=== PATIENT | female | born 1975 | race Caucasian/White ===

== ENCOUNTER 2016-11-27 18:02 | Emergency (ER) | payer SELFPAY ==
[2016-11-27 18:10] VITALS: BMI 39.2
--- NOTE | 2016-11-27 18:29 | DR.GENAD ---
HPI - PCP Primary Care Physician: nfd - Complaint/Symptoms Chief Complaint:: pt states" my rt ear is hurting bad since sunday it feels like its going to the other ear can you take a picture of my head to see what is going on" - Source History Provided: Patient - Mode of Arrival Mode of Arrival: Ambulatory - Timing Onset of Chief Complaint: 11/25/16 PMH - PMH Past Medical History: No Past Surgical History: Yes Surgical History: Appendectomy, , Hysterectomy Past Surgical History Comment: sinus - Family History History of Family Medical Conditions: Yes Family Medical History: Cancer, Heart Failure - Social History Type of Tobacco Use: Cigarettes Does any household member use tobacco: Yes Alcohol Use: None Do you use any recreational Drugs:: No Lives With: Family Lives Where: Home - infectious screening In the last 2 months have you had wt loss of >10#?: NO Have you had fever, night sweats or hemotysis?: No Have you traveled outside the country in the last 6 months?: No Isolation: Standard ROS - Review of Systems Eyes: No Symptoms Reported ENTM: Ear Pain (right) Respiratoy: No Symptoms Reported Cardiovascular: No Symptoms Reported Gastrointestinal/Abdominal: No Symptoms Reported Genitourinary: No Symptoms Reported Neurological: No Symptoms Reported Musculoskeletal: No Symptoms Reported Integumentary: No Symptoms Reported Hematologic/Lymphatic: No Symptoms Reported Endocrine: No Symptoms Reported Psychiatric: No Symptoms Reported All Other Systems: Reviewed and Negative PE - Vital Signs Vitals: Temperature 983 F Pulse Rate 76 Respiratory Rate 18 Blood Pressure 118/74 O2 Sat by Pulse Oximetry 98 - General Limitations: No Limitations General Appearance: Alert, In No Apparent Distress - Head Head Exam: Normal Inspection, Atraumatic - Eyes Eye exam: Normal Appearance, PERRL, EOMI - ENT ENT Exam: Other (Right TM dull red andretracted) External Ear Exam: Normal External Inspection TM/Canal Exam: Bilateral Normal Nose Exam: Normal Nose Exam Mouth Exam: Normal Inspection Throat Exam: Normal Inspection - Neck Neck Exam: Normal Inspection - Chest Chest Inspection: Normal Inspection - Respiratory Respiratory Exam: Normal Lung Sounds Bilat Respiratory Exam: Bilateral Clear to Auscultation - Cardiovascular Cardiovascular Exam: Regular Rate, Normal Rhythm - Abdominal Exam Abdominal Exam: Normal Inspection Abdominal Tenderness: negative: RUQ, RLQ, LUQ, LLQ, Epigastrium, Suprapubic, Diffuse, Mild, Moderate, Severe, Other - Extremities Extremities Exam: Normal Inspection - Back Back Exam: Normal Inspection - Neurologic Neurological Exam: Alert, Oriented X3, CN II-XII Intact - Psychiatric Psychiatric Exam: Normal Affect - Skin Skin Exam: Warm, Dry, Intact - Diagnosis Discharge Problem: Right otitis media Qualifiers: Otitis media type: suppurative Chronicity: acute Recurrence: not specified as recurrent Spontaneous tympanic membrane rupture: without spontaneous rupture Qualified Code(s): H66.001 - Acute suppurative otitis media without spontaneous rupture of ear drum, right ear - Discharge Plan Condition: Stable - Follow ups/Referrals Follow ups/Referrals: NFD,None [Primary Care Provider] - 3 days - Instructions
[2016-11-27] MEDS ORDERED: ROCEPHIN VIAL 1 GM IM ONE (18:30)
[2016-11-27] MEDS ORDERED: XYLOCAINE 1 % (PLAIN) ONE (18:31)
[2016-11-27] MEDS ORDERED: ROCEPHIN VIAL 1 GM ONE (18:31)
[2016-11-27 18:56] VITALS: BP 116/72
== END 2016-11-27 18:56 | disposition home or self-care (01) ==
LOC: ER 18:13
DX: H66.001 Acute suppurative otitis media without spontaneous rupture of ear drum, right ear (principal)
CPT/HCPCS: 96372; 99282; J0696; J2001

== ENCOUNTER 2017-05-31 18:00 | Emergency (ER) | payer SELFPAY ==
[2017-05-31 18:06] VITALS: BP 113/77; BMI 37.8
--- NOTE | 2017-05-31 18:21 | DR.EXTPAIN ---
HPI - Time seen Time seen: 18:20 - PCP Primary Care Physician: kyra - HPI Comment HPI Comment: DENIES OTHER INJURIES. - Complaint/Symptoms Chief Complaint Doctor Comments: RIGHT SHOULDER PAIN FOR SEVERAL HOURS DUE TO A FALL. Chief Complaint:: pt stated she fell this morning and landed on her right shoulder. she stated she has been in pain every since. - Nurses notes reviewed Nurses Notes Review: Yes - Source History Provided: Patient - Mode of arrival Mode of Arrival: Ambulatory - Timing Onset of Chief Complaint: 05/31/17 - Context History of: None - Associated signs and symptoms Associated Signs and Symptoms: Pain PMH - PMH Past Medical History: Yes Past Medical History: GERD Past Surgical History: Yes Surgical History: Appendectomy, , Hysterectomy - Family History History of Family Medical Conditions: Yes Family Medical History: Cancer, Heart Failure - Social History Does patient currently use any type of tobacco product: Yes Have you used tobacco products in the last 12 months: Yes Type of Tobacco Use: Cigarettes How many years tobacco product used: 20 Does any household member use tobacco: No Alcohol Use: None Do you use any recreational Drugs:: No Lives With: Alone Lives Where: Home - infectious screening In the last 2 months have you had wt loss of >10#?: NO Have you had fever, night sweats or hemotysis?: No Have you traveled outside the country in the last 6 months?: No Isolation: Standard ROS - Review of Systems Constitutional: No Symptoms Reported Eyes: No Symptoms Reported ENTM: No Symptoms Reported Respiratoy: No Symptoms Reported Cardiovascular: No Symptoms Reported Gastrointestinal/Abdominal: No Symptoms Reported Genitourinary: No Symptoms Reported Neurological: No Symptoms Reported Musculoskeletal: Right, Shoulder Integumentary: No Symptoms Reported Hematologic/Lymphatic: No Symptoms Reported Endocrine: No Symptoms Reported All Other Systems: Reviewed and Negative PE - Vital Signs Vitals: Temperature 98.2 F Pulse Rate 77 Respiratory Rate 16 Blood Pressure [Left Arm] 116/72 Blood Pressure 113/77 O2 Sat by Pulse Oximetry 98 - General Limitations: No Limitations General Appearance: Alert - Head Head Exam: Normal Inspection - Eyes Eye exam: Normal Appearance - ENT ENT Exam: Normal External Ear Exam - Neck Neck Exam: Trachea Midline - Chest Chest Inspection: Symmetric Chest Wall Rise - Respiratory Respiratory Exam: Normal Lung Sounds Bilat Respiratory Exam: Bilateral Clear to Auscultation - Cardiovascular Cardiovascular Exam: Regular Rate, Normal Rhythm, Normal Heart Sounds - Abdominal Exam Abdominal Exam: Normal Inspection - Extremities Extremities Exam: Tenderness (RT SHOULDER TENDER WITH DECREASE ROM.) - Upper Extremities Shoulder Exam: Tenderness (RT.) - Lower Extremities Neurovascular/Tendon Exam: Normal Capillary Refill Gait Exam: Observed and Normal - Back Back Exam: Normal Inspection - Neurological Neurological Exam: Alert, Oriented X3 - Psychiatric Psychiatric Exam: Normal Affect, Normal Mood - Skin Skin Exam: Normal Color MDM - Differential Diagnosis Differential Diagnosis: Contusion, Fracture, Sprain (RIGHT SHOULDER.) Course - Treatment Treatment: SEE ORDERS. - Education/Counseling Education/Counseling: Patient, Education Educated On: Diagnosis, Needs for Follow Up - Diagnosis Discharge Problem: Sprain of right shoulder Qualifiers: Encounter type: initial encounter Shoulder sprain type: unspecified sprain Qualified Code(s): S43.401A - Unspecified sprain of right shoulder joint, initial encounter - Discharge Plan Condition: Stable Prescriptions: Ibuprofen [MOTRIN TAB 800 MG *] 800 mg PO Q8H PRN #30 tab PRN Reason: Pain/Inflammation Tramadol HCl 50 mg PO Q8H #15 tablet - Follow ups/Referrals Follow ups/Referrals: NFD,None [Primary Care Provider] - 06/01/17 Shane Ferguson [STAFF PHYSICIAN] - 06/01/17 - Instructions Instructions: How to Use a Shoulder Immobilizer, Shoulder Sprain
--- NOTE | 2017-05-31 18:40 | RAD ---
Three views of the right shoulder Indication: Right shoulder pain after fall Findings: No acute fracture or dislocation within the right shoulder. AC and glenohumeral joint space s are maintained. No localizing soft tissue swelling. No displaced right-sided rib fracture. Impression: No radiographic abnormality identified within the right shoulder. Reported By:
[2017-05-31] MEDS ORDERED: TORADOL 60 MG VIAL IM ONE (18:43)
[2017-05-31] MEDS ORDERED: TORADOL 60 MG VIAL ONE (18:50)
== END 2017-05-31 19:10 | disposition home or self-care (01) ==
LOC: ER 18:00
DX: S43.401A Unspecified sprain of right shoulder joint, initial encounter (principal); W19.XXXA Unspecified fall, initial encounter; Y92.9 Unspecified place or not applicable
CPT/HCPCS: 73030; 96372; 99282; J1885

== ENCOUNTER 2020-04-02 15:48 | Observation (INO) ==
[2020-04-02 17:12] VITALS: BMI 37.8
[2020-04-02 17:25] LABS: ABG BASE EXCESS 0.3 mmol/L (-2.0-2.0); ABG HCO3 24.6 mmol/L (22-26)
[2020-04-02 17:26] LABS: ABG ALLEN TEST POS
--- NOTE | 2020-04-02 17:28 | RAD ---
HISTORYPT C/O C/C/C, SOB, VOMITING, FEVER, BODY ACHES, AND CHILLS. PT STATES SHE HAS BEEN SICK WITH THESE SYMPTOMS FOR APPROX 3 DAYSSTUDYCHEST, 1 VIEWCOMPARISONNoneFINDINGSThe cardiomediastinal silhouette is unremarkable. The lungs are clear without evidence of airspace disease or effusion. No pneumothorax. The bony thorax appears intact.IMPRESSIONNo acute cardiopulmonary disease.Electronically signed by: MARCIA MORENO (Apr 02, 2020 17:26:43)
[2020-04-02 17:31] LABS: BASOPHILS % (AUTO) 0.4 % (0.2-1.0); EOSINOPHILS # (AUTO) 0.2 x10^3/uL (0.0-0.2); EOSINOPHILS % (AUTO) 1.6 % (0.9-2.9); HEMATOCRIT 42.1 % (36.0-47.0); HEMOGLOBIN 14.2 g/dL (12.0-16.0); LYMPHOCYTES # (AUTO) 0.8 X10^3/uL (1.3-2.9); LYMPHOCYTES % (AUTO) 8.2 % (21.0-51.0); MEAN CORPUSCULAR HGB CONC 33.7 g/dL (33.0-35.0); MEAN CORPUSCULAR VOLUME 86.2 fL (80.0-100.0); MEAN PLATELET VOLUME 9.7 fL (7.4-11.0); MONOCYTES # (AUTO) 0.8 x10^3/uL (0.3-0.8); MONOCYTES % (AUTO) 7.5 % (0.0-13.0); NEUTROPHILS # (AUTO) 8.3 x10^3/uL (2.2-4.8); NEUTROPHILS % (AUTO) 82.3 % (42.0-75.0); PLATELET COUNT 231 X10^3/uL (150.0-450.0); RED BLOOD COUNT 4.89 X10^6/uL (3.5-5.4); RED CELL DISTRIBUTION WIDTH 14.1 % (11.6-16.5); WHITE BLOOD COUNT 10.1 X10^3/uL (3.6-10.0)
[2020-04-02 17:47] LABS: BLOOD UREA NITROGEN 5 mg/dL (7-18); CALCIUM 9.3 mg/dL (8.5-10.1); CARBON DIOXIDE 25.2 mmol/L (21-32); CHLORIDE 104 mmol/L (98-107); CREATININE 0.76 mg/dL (0.55-1.02); SODIUM 140 mmol/L (136-145); TROPONIN I < 0.02 ng/mL (0-1.5); eGFR NON BLACK RACES > 60 (>60)
[2020-04-02 17:51] LABS: ALANINE AMINOTRANSFERASE 40 Units/L (12-78); ALBUMIN 3.8 g/dL (3.4-5.0); ALKALINE PHOSPHATASE 90 Units/L (46-116); ASPARTATE AMINO TRANSFERASE 24 Units/L (15-37); CKMB % 1.3 % (<4); CREATINE KINASE 109 Units/L (26-192); CREATINE KINASE MB 1.4 ng/mL (0-4.0); MAGNESIUM 1.8 mg/dL (1.7-2.9); TOTAL PROTEIN 7.8 g/dL (6.4-8.2)
[2020-04-02] MEDS ORDERED: NS 100 ML IV 100 ML IV ONE (18:01)
[2020-04-02] MEDS ORDERED: PROVENTIL NEB TX 0.083% 2.5MG/ 3ML NEB ONE (18:10)
[2020-04-02] MEDS ORDERED: DECADRON INJ IVP ONE (18:10)
[2020-04-02] MEDS ORDERED: ZITHROMAX INJ 500 MG VIAL 500 MG in NS 250 ML IV 250 ML IV SCH (18:11)
--- NOTE | 2020-04-02 18:12 | DR.SOBA ---
HPI Time Seen Time Seen by Provider: 04/02/20 17:00 Primary Care Physician Primary Care Physician: NFD Complaints Chief Complaint:: PT C/O C/C/C, SOB, VOMITING, FEVER, BODY ACHES, AND CHILLS. PT STATES SHE HAS BEEN SICK WITH THESE SYMPTOMS FOR APPROX 3 DAYS. COVID-19 Coronavirus risk:travel/contact w/high risk person: No Has patient experienced Coronavirus symptoms: Yes Coronavirus symptoms experienced: Fever, Coughing and Shortness of Breath Source History Provided: Patient Mode of Arrival Mode of Arrival: Ambulatory Timing Onset of Chief Complaint: 03/30/20 PMH PMH Past Medical History: No Past Medical History: GERD Past Surgical History: Yes Surgical History: and Hysterectomy Family History History of Family Medical Conditions: Yes Family Medical History: Cancer and Heart Failure Social History Does patient currently use any type of tobacco product: Yes Have you used tobacco products in the last 12 months: Yes Type of Tobacco Use: Cigarettes Does any household member use tobacco: No Alcohol Use: None Do you use any recreational Drugs:: No Lives With: Family Lives Where: Home Travel Risk Coronavirus risk:travel/contact w/high risk person: No Has patient experienced Coronavirus symptoms: Yes Coronavirus symptoms experienced: Fever, Coughing and Shortness of Breath Infectious screening In the last 2 months have you had wt loss of >10#?: NO Have you had fever, night sweats or hemotysis?: No Have you traveled outside the country in the last 6 months?: No Isolation: Droplet ROS Review of Systems Constitutional: See HPI PE Vital Signs Vitals: Temperature 101.0 F Pulse Rate 107 Respiratory Rate 25 Blood Pressure [Right Arm] 152/97 Blood Pressure 169/70 O2 Sat by Pulse Oximetry 98 General Limitations: No Limitations General Appearance: Alert and In No Apparent Distress Head Head Exam: Normal Inspection, Atraumatic and Normocephalic Eyes Eye exam: Normal Appearance, PERRL and EOMI ENT ENT Exam: Normal Exam Neck Neck Exam: Normal Inspection and Trachea Midline Chest Chest Inspection: Normal Inspection and Symmetric Chest Wall Rise Respiratory Respiratory Exam: Bilateral: Wheezing, Bilateral: Rales and Bilateral: Rhonchi Cardiovascular Cardiovascular Exam: Regular Rate, Normal Rhythm and Normal Heart Sounds Abdominal Exam Abdominal Exam: Normal Inspection, Normal Bowel Sounds and Soft Extremities Extremities Exam: Normal Inspection and Full ROM Neurologic Neurological Exam: Alert and Oriented X3 Psychiatric Psychiatric Exam: Normal Affect Skin Skin Exam: Warm, Dry and Intact COURSE Reevaluation 1st: Unchanged Consultation Consultation Comments: Spoke with Dr. Ferguson who accepts patient for admission. [facility] Labs Reviewed Result Diagrams: 04/02/20 17:05 04/02/20 17:05 Laboratory: WBC 10.1 X10^3/uL (3.6-10.0) H 04/02/20 17:05 RBC 4.89 X10^6/uL (3.5-5.4) 04/02/20 17:05 Hgb 14.2 g/dL (12.0-16.0) 04/02/20 17:05 Hct 42.1 % (36.0-47.0) 04/02/20 17:05 MCV 86.2 fL (80.0-100.0) 04/02/20 17:05 MCH 29.0 pg (27.0-34.0) 04/02/20 17:05 MCHC 33.7 g/dL (33.0-35.0) 04/02/20 17:05 RDW 14.1 % (11.6-16.5) 04/02/20 17:05 Plt Count 231 X10^3/uL (150.0-450.0) 04/02/20 17:05 MPV 9.7 fL (7.4-11.0) 04/02/20 17:05 Neut % (Auto) 82.3 % (42.0-75.0) H 04/02/20 17:05 Lymph % (Auto) 8.2 % (21.0-51.0) L 04/02/20 17:05 [place] % (Auto) 7.5 % (0.0-13.0) 04/02/20 17:05 Eos % (Auto) 1.6 % (0.9-2.9) 04/02/20 17:05 Baso % (Auto) 0.4 % (0.2-1.0) 04/02/20 17:05 Neut # (Auto) 8.3 x10^3/uL (2.2-4.8) H 04/02/20 17:05 Lymph # (Auto) 0.8 X10^3/uL (1.3-2.9) L 04/02/20 17:05 [place] # (Auto) 0.8 x10^3/uL (0.3-0.8) 04/02/20 17:05 Eos # (Auto) 0.2 x10^3/uL (0.0-0.2) 04/02/20 17:05 Baso # (Auto) 0.0 X10^3/uL (0.0-0.1) 04/02/20 17:05 Absolute Nucleated RBC 0.1 /100WBC 04/02/20 17:05 PT 13.7 SECONDS (11.8-14.3) 04/02/20 17:05 INR Target Range - 04/02/20 17:05 INR 1.08 (0.8-1.3) 04/02/20 17:05 Sample Site Rra 04/02/20 17:22 ABG pH 7.420 (7.35-7.45) 04/02/20 17:22 ABG pCO2 38.0 mmHg (35.0-45.0) 04/02/20 17:22 ABG pO2 50.0 mmHg (80.0-100.0) L 04/02/20 17:22 ABG HCO3 24.6 mmol/L (22-26) 04/02/20 17:22 ABG O2 Saturation 86.0 % (90-100) L 04/02/20 17:22 ABG Base Excess 0.3 mmol/L (-2.0-2.0) 04/02/20 17:22 Chandan Test Pos 04/02/20 17:22 A-a Gradient 52.0 mmHg 04/02/20 17:22 FiO2 21.0 04/02/20 17:22 Blood Gas Comments Pt radha well eb 04/02/20 17:22 Sodium 140 mmol/L (136-145) 04/02/20 17:05 Corrected Sodium TNP 04/02/20 17:05 Potassium 3.7 mmol/L (3.5-5.1) 04/02/20 17:05 Chloride 104 mmol/L (98-107) 04/02/20 17:05 Carbon Dioxide 25.2 mmol/L (21-32) 04/02/20 17:05 BUN 5 mg/dL (7-18) L 04/02/20 17:05 Creatinine 0.76 mg/dL (0.55-1.02) 04/02/20 17:05 Est GFR (MDRD) Af Amer > 60 (>60) 04/02/20 17:05 Est GFR (MDRD) Non-Af > 60 (>60) 04/02/20 17:05 Glucose 102 mg/dL (65-99) H 04/02/20 17:05 Calcium 9.3 mg/dL (8.5-10.1) 04/02/20 17:05 Corrected Calcium TNP 04/02/20 17:05 Magnesium 1.8 mg/dL (1.7-2.9) 04/02/20 17:05 Total Bilirubin 0.60 mg/dL (0.2-1.0) 04/02/20 17:05 AST 24 Units/L (15-37) 04/02/20 17:05 ALT 40 Units/L (12-78) 04/02/20 17:05 Alkaline Phosphatase 90 Units/L (46-116) 04/02/20 17:05 Creatine Kinase 109 Units/L (26-192) 04/02/20 17:05 CK-MB (CK-2) 1.4 ng/mL (0-4.0) 04/02/20 17:05 CK/CKMB % Calc 1.3 % (<4) 04/02/20 17:05 Troponin I < 0.02 ng/mL (0-1.5) 04/02/20 17:05 B-Natriuretic Peptide 32.6 pg/mL (0-79) 04/02/20 17:05 Total Protein 7.8 g/dL (6.4-8.2) 04/02/20 17:05 Albumin 3.8 g/dL (3.4-5.0) 04/02/20 17:05 Globulin 4.0 g/dL (2.5-4.5) 04/02/20 17:05 Albumin/Globulin Ratio 1.0 Ratio (1.1-2.1) L 04/02/20 17:05 SARS CoV-2 RNA Rapid KATIE Negative (NEGATIVE) 04/02/20 19:07 Opioid Opioid Risk Tool Age (Serg box if 16-45): Yes History of Preadolescent Sexual Abuse: No Total: 1 Total Score Risk Category: Low Risk Copyright: Jamel MENEZES predicting aberrant behaviors Diagnosis Discharge Problem: Hypoxia, Acute dyspnea
[2020-04-02] MEDS ORDERED: PROVENTIL NEB TX 0.083% 2.5MG/ 3ML ONE (18:19)
[2020-04-02] MEDS ORDERED: NS 250 ML IV 250 ML IV ONE (18:23)
[2020-04-02] MEDS ORDERED: ZITHROMAX INJ 500 MG VIAL IV ONE (18:23)
[2020-04-02] MEDS ORDERED: DECADRON INJ ONE ×2 (18:23→18:25)
[2020-04-02] MEDS ORDERED: NS 1000 ML 1,000 ML ONE (18:28)
[2020-04-02] MEDS: NS 1000 ML 1,000 ML IV SCH (18:36)
--- NOTE | 2020-04-02 18:39 | CT ---
CTA CHESTCLINICAL INDICATION: Shortness of breathPROCEDURE: Non gated axial images of the chest were obtained with intravenous contrast according to pulmonary embolism protocol. MIPS were reconstructed Dose reduction techniques including Automated Exposure Control (AEC) and adjustment of mA and kV were utlized.COMPARISON:NoneFINDINGS:No evidence of a pulmonary embolism to the level of the segmental pulmonary arteries.The heart is normal in size . No pericardial effusion . No suspicious mediastinal or axillary lymph nodes . No focal consolidations, pleural effusions or pneumothorax .Airways are patent . No suspicious pulmonary nodules or masses .Limited images of the upper abdomen are unremarkable.No aggressive osseous lesions.IMPRESSION:1. No evidence of pulmonary embolism.Electronically signed by: CARLA VAZQUEZ (Apr 02, 2020 18:37:18)
[2020-04-02] MEDS ORDERED: ZOSYN VIAL 4.5 GRAMS 4.5 G in NS 100 ML IV + SPIKE MINIBAG* 100 ML IV SCH (19:50)
[2020-04-02] MEDS ORDERED: LEVAQUIN PREMIX IV 750 MG 750 MG/150 ML BAG IV ONE ×2 (19:50→20:58)
[2020-04-02 20:46] LABS: RSV AG DETECTION NEGATIVE (NEGATIVE)
[2020-04-02] MEDS ORDERED: ZOSYN VIAL 4.5 GRAMS IV ONE (20:58)
[2020-04-02] MEDS ORDERED: NS 100 ML IV + SPIKE MINIBAG* 100 ML IV ONE (20:59)
[2020-04-03] MEDS ORDERED: ZOSYN VIAL 4.5 GRAMS IV ONE ×3 (05:35→20:16)
[2020-04-03] MEDS ORDERED: NS 100 ML IV + SPIKE MINIBAG* 100 ML IV ONE ×3 (05:36→20:16)
[2020-04-03] MEDS: ZOSYN VIAL 4.5 GRAMS 4.5 G in NS 100 ML IV + SPIKE MINIBAG* 100 ML IV SCH ×3 (05:49→21:06)
[2020-04-03] MEDS: NS 1000 ML 1,000 ML IV SCH ×2 (05:49→15:00)
[2020-04-03 05:55] LABS: ABG ALLEN TEST POS; ABG BASE EXCESS -0.4 mmol/L (-2.0-2.0); ABG HCO3 24.8 mmol/L (22-26)
--- NOTE | 2020-04-03 06:42 | RAD ---
CHEST, 1 VIEWHISTORY: SOBStudy: Single view of the chest.Comparison:NoneFindings:The cardiomediastinal silhouette is normal.No focal consolidations, pleural effusions or pneumothorax. Osseous structures demonstrate no acute abnormality.IMPRESSION:1. No acute cardiopulmonary process.Electronically signed by: CARLA VAZQUEZ (Apr 03, 2020 06:41:11)
[2020-04-03 06:54] LABS: BASOPHILS % (AUTO) 0.1 % (0.2-1.0); HEMATOCRIT 40.2 % (36.0-47.0); HEMOGLOBIN 13.6 g/dL (12.0-16.0); LYMPHOCYTES # (AUTO) 0.5 X10^3/uL (1.3-2.9); LYMPHOCYTES % (AUTO) 6.6 % (21.0-51.0); MEAN CORPUSCULAR HEMOGLOBIN 29.1 pg (27.0-34.0); MEAN CORPUSCULAR HGB CONC 33.8 g/dL (33.0-35.0); MEAN PLATELET VOLUME 9.9 fL (7.4-11.0); MONOCYTES # (AUTO) 0.1 x10^3/uL (0.3-0.8); MONOCYTES % (AUTO) 1.3 % (0.0-13.0); NEUTROPHILS # (AUTO) 7.1 x10^3/uL (2.2-4.8); PLATELET COUNT 235 X10^3/uL (150.0-450.0); RED BLOOD COUNT 4.68 X10^6/uL (3.5-5.4); RED CELL DISTRIBUTION WIDTH 14.3 % (11.6-16.5); WHITE BLOOD COUNT 7.7 X10^3/uL (3.6-10.0)
[2020-04-03 07:08] LABS: ALANINE AMINOTRANSFERASE 37 Units/L (12-78); ALBUMIN 3.6 g/dL (3.4-5.0); ALKALINE PHOSPHATASE 85 Units/L (46-116); ASPARTATE AMINO TRANSFERASE 20 Units/L (15-37); BLOOD UREA NITROGEN 7 mg/dL (7-18); CALCIUM 9.2 mg/dL (8.5-10.1); CARBON DIOXIDE 23.1 mmol/L (21-32); CHLORIDE 104 mmol/L (98-107); SODIUM 140 mmol/L (136-145); TOTAL PROTEIN 7.7 g/dL (6.4-8.2); eGFR NON BLACK RACES > 60 (>60)
[2020-04-03 08:28] LABS: BAND NEUTROPHILS % 3 % (0-10); PLATELET MORPHOLOGY COMMENT NORMAL (NORMAL)
[2020-04-03] MEDS ORDERED: FIORICET TAB PO PRN (09:31)
[2020-04-03] MEDS ORDERED: DUONEB 0.5 MG/3 MG (3 mL) NEB ONE ×2 (09:55→20:01)
[2020-04-03] MEDS: MUCOMYST 20% 200 MG/ML NEB SCH ×4 (10:00→20:04)
[2020-04-03] MEDS: DUONEB 0.5 MG/3 MG (3 mL) NEB SCH ×4 (10:00→20:04)
[2020-04-03] MEDS ORDERED: LEVAQUIN PREMIX IV 750 MG 750 MG/150 ML BAG IV ONE (10:45)
[2020-04-03] MEDS ORDERED: SOLU-Medrol 125 MG VIAL ONE ×3 (10:45→20:15)
[2020-04-03] MEDS ORDERED: FIORICET TAB PO ONE (10:45)
[2020-04-03] MEDS: LEVAQUIN PREMIX IV 750 MG 750 MG/150 ML BAG IV SCH (10:46)
[2020-04-03] MEDS: SOLU-Medrol 125 MG VIAL IVP SCH ×3 (10:46→21:00)
--- NOTE | 2020-04-03 11:31 | DR.H&P ---
H&P - History & Physical for Day of: H&P Date: 04/02/20 - Chief Complaint Chief Complaint: COUGH, COLD, CONGESTION, SHORTNESS OF BREATH, FEVER, BODY ACHES, CHILLS, AND NAUSEA FOR THE PAST 3 DAYS - History of Present Illness History of Present Illness: IS A 44 YEAR OLD WHITE FEMALE WHO PRESENTED TO THE ER WITH COMPLAINTS OF COUGH, COLD, CONGESTION, SHORTNESS OF BREATH, FEVER, BODY ACHES, CHILLS, AND NAUSEA FOR THE PAST 3 DAYS. SHE REPORTS THAT COUGH IS PRODUCTIVE. SHE DENIES KNOW CONTACT WITH ANYONE WHO HAS BEEN COVID POSITVE. ON EXAMINATION, SHE IS NOTED TO HAVE SCATTERED RHONCHI TO BILATERAL LUNGS. ON ARRIVAL, VITALS WERE 101.0-120-28-90%RA-169/70. LABS WERE OBTAINED. ABNORMAL LAB VALUES INCLUDED THE FOLLOWING: WBC 10.1, BUN 5, GLUCOSE 102, CRP 90.60. RSV, COVID-19, STREP, AND INFLUENZA WERE NEGATIVE. AN ABG WAS OBTAINED AND REVEALED: PH 7.420, PC02 38, P02 50, HC03 24.6, 02 SAT 86, A-A GRADIENT 52, FI02 21.0. BLOOD CULTURES WERE SET UP. A CHEST XRAY WAS OBTAINED AND REVEALED: The cardiomediastinal silhouette is unremarkable. The lungs are clear without evidence of airspace disease or effusion. No pneumothorax. The bony thorax appears intact. A CHEST CTA WAS THEN OBTAINED AND REVEALED: No evidence of a pulmonary embolism to the level of the segmental pulmonary arteries. The heart is normal in size . No pericardial effusion . No suspicious mediastinal or axillary lymph nodes . No focal consolidations, pleural effusions or pneumothorax .Airways are patent . No suspicious pulmonary nodules or masses. Limited images of the upper abdomen are unremarkable. No aggressive osseous lesions. EKG REVEALED: SINUS TACHYCARDIA WITH HR 112. HER OXYGEN SATURATIONS DID DROP TO 88% ON ROOM AIR WHILE IN THE ER. SHE WAS PLACED ON OXYGEN VIA NASAL CANNULA AT 3 LITERS/MINUTE. HER SATURATIONS RECOVERED TO THE UPPER 90s. IN THE ER, SHE WAS GIVEN DECADRON 10MG IV X 1, A PROVENTIL NEB TX, LEVAQUIN 750MG IV X 1, ZOSYN 4.5G IV X 1. SHE WAS ADMITTED TO THE HOSPITAL FOR FURTHER EVALUATION AND TREATMENT OF BRONCHOPNEUMONIA, HYPOXIA, FEVER, AND DYSPNEA. SHE WAS STARTED ON NORMAL SALINE AT 125 ML/HR, LEVAQUIN 750MG IV DAILY, ZOSYN 4.5G IV TID, DUONEBS QID, MUCOMYST IN NEBS QID, SOLU-MEDROL 125MG IV Q6H, AND FIORICET 2 TABS PO Q8H PRN. WE WILL OBTAIN A SPUTUM CULTURE. OTHERWISE, WE WILL FOLLOW UP WITH AM LABS AND CHEST XRAY AND CONTINUE TO MONITOR. TIME SPENT ON CLINICAL ASSESSMENT, REVIEWING LABS AND IMAGING, DECISION MAKING, AND DOCUMENTATION GREATER THAN 75 MINUTES. - Past Medical History Past Medical History: GERD - Past Surgical History Surgical History: , Hysterectomy - Family History Family Medical History: Cancer, Heart Failure - Social History Does patient currently use any type of tobacco product: Yes Have you used tobacco products in the last 12 months: Yes Type of Tobacco Use: Cigarettes Does any household member use tobacco: No Alcohol Use: None - Medications Home Medications: hydromorphone [From Dilaudid] Allergy (Verified 03/21/18 11:04) - Review of Systems Constitutional: See HPI, Fever, Chills, Weakness, Malaise Eyes: No Symptoms Reported ENT: No Symptoms Reported Respiratory: See HPI, Cough, Shortness of Breath, SOB with Excertion, Sputum Cardiovascular: No Symptoms Reported Gastrointestinal: Nausea Genitourinary: No Symptoms Reported Musculoskeletal: No Symptoms Reported Skin: No Symptoms Reported Neurological: Weakness - Physical Exam Vital Signs: Temperature 98.1 F Pulse Rate [Right Brachial] 58 Pulse Rate [Bilateral] 74 Pulse Rate 88 Respiratory Rate 20 Blood Pressure [Right Arm] 129/71 Blood Pressure 169/70 O2 Sat by Pulse Oximetry 96 Oriented: Normal Eyes: Normal Ear: Normal Nose: Normal Throat: Normal Respiratory: Diminished Throughout, Rhonchi Throughout Cardiovascular: Tachycardia : Normal Auscultation: Bowel Sounds: Normal Palpation: Normal Tenderness: Normal Skin: Normal Musculoskeletal: Normal Psychiatric: Normal Mood Description: Calm Affect: Normal Speech Pattern: Clear - Assessment/Plan (1) Bronchopneumonia Status: Acute Plan: ADMIT, SUPPLEMENTAL OXYGEN, NORMAL SALINE AT 125 ML/HR, LEVAQUIN 750MG IV DAILY, ZOSYN 4.5G IV TID, DUONEBS QID, MUCOMYST IN NEBS QID, SOLU-MEDROL 125MG IV Q6H, AND FIORICET 2 TABS PO Q8H PRN. MONITOR LABS AND CHEST XRAY (2) Hypoxia Status: Acute (3) Acute dyspnea Status: Acute (4) Fever Qualifiers: Fever type: unspecified Qualified Code(s): R50.9 - Fever, unspecified Status: Acute - Allergies Allergies/Adverse Reactions: Allergies Allergy/AdvReac Type Severity Reaction Status Date / Time hydromorphone [From Dilaudid] Allergy Verified 03/21/18 11:04
[2020-04-03] MEDS ORDERED: NS 1000 ML 1,000 ML ONE ×2 (12:13→23:39)
[2020-04-03] MEDS ORDERED: MAALOX or MYLANTA ONE (17:13)
[2020-04-03] MEDS: MAALOX or MYLANTA PO PRN (17:22)
[2020-04-03] MEDS ORDERED: PEPCID 20 MG IV PREMIX* 20 MG/50 ML BAG IV ONE (19:16)
[2020-04-03] MEDS ORDERED: MUCOMYST 20% 200 MG/ML ONE (20:01)
[2020-04-03] MEDS: PEPCID 20 MG IV PREMIX* 20 MG/50 ML BAG IV SCH (20:12)
[2020-04-04] MEDS: NS 1000 ML 1,000 ML IV SCH ×4 (00:45→23:49)
[2020-04-04] MEDS: SOLU-Medrol 125 MG VIAL IVP SCH ×4 (05:00→22:00)
[2020-04-04] MEDS ORDERED: SOLU-Medrol 125 MG VIAL ONE ×2 (05:15→08:03)
[2020-04-04] MEDS ORDERED: ZOSYN VIAL 4.5 GRAMS IV ONE (05:15)
[2020-04-04] MEDS ORDERED: NS 100 ML IV + SPIKE MINIBAG* 100 ML IV ONE (05:15)
[2020-04-04] MEDS: ZOSYN VIAL 4.5 GRAMS 4.5 G in NS 100 ML IV + SPIKE MINIBAG* 100 ML IV SCH ×3 (05:27→23:49)
[2020-04-04 06:49] LABS: BASOPHILS % (AUTO) 0.1 % (0.2-1.0); HEMATOCRIT 38.4 % (36.0-47.0); HEMOGLOBIN 12.3 g/dL (12.0-16.0); LYMPHOCYTES # (AUTO) 0.9 X10^3/uL (1.3-2.9); LYMPHOCYTES % (AUTO) 7.2 % (21.0-51.0); MEAN CORPUSCULAR HEMOGLOBIN 28.2 pg (27.0-34.0); MEAN CORPUSCULAR HGB CONC 32.2 g/dL (33.0-35.0); MEAN CORPUSCULAR VOLUME 87.6 fL (80.0-100.0); MEAN PLATELET VOLUME 10.5 fL (7.4-11.0); MONOCYTES # (AUTO) 0.5 x10^3/uL (0.3-0.8); MONOCYTES % (AUTO) 4.1 % (0.0-13.0); NEUTROPHILS # (AUTO) 10.8 x10^3/uL (2.2-4.8); NEUTROPHILS % (AUTO) 88.6 % (42.0-75.0); PLATELET COUNT 241 X10^3/uL (150.0-450.0); RED BLOOD COUNT 4.38 X10^6/uL (3.5-5.4); RED CELL DISTRIBUTION WIDTH 14.2 % (11.6-16.5); WHITE BLOOD COUNT 12.2 X10^3/uL (3.6-10.0)
--- NOTE | 2020-04-04 06:50 | RAD ---
HISTORYSOBSTUDYAP chestCOMPARISONFebruary 2020FINDINGSContinued normal heart size and contour with clear lungs and pleural spaces.IMPRESSIONNo interval change or acute chest abnormality demonstrated.Electronically signed by: ANGIE REYNAGA (Apr 04, 2020 06:48:15)
[2020-04-04 07:07] LABS: ALANINE AMINOTRANSFERASE 38 Units/L (12-78); ALKALINE PHOSPHATASE 70 Units/L (46-116); ASPARTATE AMINO TRANSFERASE 20 Units/L (15-37); BLOOD UREA NITROGEN 10 mg/dL (7-18); CALCIUM 8.9 mg/dL (8.5-10.1); CARBON DIOXIDE 25.5 mmol/L (21-32); CHLORIDE 108 mmol/L (98-107); COR CA(FOR HYPOALB) 9.7 mg/dL (8.5-10.1); COR NA(FOR HYPERGLY) 144 mmol/L (136-145); CREATININE 0.68 mg/dL (0.55-1.02); SODIUM 143 mmol/L (136-145); TOTAL PROTEIN 6.6 g/dL (6.4-8.2); eGFR NON BLACK RACES > 60 (>60)
[2020-04-04] MEDS: DUONEB 0.5 MG/3 MG (3 mL) NEB SCH ×4 (08:00→20:58)
[2020-04-04] MEDS: MUCOMYST 20% 200 MG/ML NEB SCH ×4 (08:00→20:58)
[2020-04-04] MEDS ORDERED: PEPCID 20 MG IV PREMIX* 20 MG/50 ML BAG IV ONE (08:03)
[2020-04-04] MEDS ORDERED: LEVAQUIN PREMIX IV 750 MG 750 MG/150 ML BAG IV ONE (08:04)
[2020-04-04] MEDS: LEVAQUIN PREMIX IV 750 MG 750 MG/150 ML BAG IV SCH (08:10)
[2020-04-04] MEDS: PEPCID 20 MG IV PREMIX* 20 MG/50 ML BAG IV SCH ×2 (08:10→21:40)
[2020-04-04] MEDS ORDERED: POTASSIUM CHL 60 MEQ/NS 0.45% 500 ML IV PRN (14:59)
[2020-04-04] MEDS ORDERED: POTASSIUM CHLORIDE LIQ 20 MEQ UDC PO PRN (14:59)
[2020-04-04] MEDS ORDERED: K-DUR TAB 20 MEQ PO PRN (14:59)
[2020-04-04] MEDS ORDERED: MICRO K EXTEN CAP 10 MEQ PO PRN (14:59)
[2020-04-04] MEDS ORDERED: POTASSIUM CHL 40 MEQ/NS 0.45% 500 ML IV PRN (14:59)
[2020-04-04] MEDS ORDERED: K-RIDER 10 MEQ/NS 100 ML 10 MEQ/100 ML BAG IV PRN (14:59)
[2020-04-04] MEDS ORDERED: KLOR-CON PO PRN (14:59)
[2020-04-04] MEDS ORDERED: NORCO 5/325 MG TAB PO PRN (15:02)
[2020-04-04] MEDS: MAGNESIUM SULFATE 1 GRAM/100 mL PREMIX 1 GM/100 ML BAG IV PRN ×2 (15:12→22:40)
[2020-04-04] MEDS: MAALOX or MYLANTA PO PRN (15:13)
[2020-04-04] MEDS ORDERED: NS 250 ML IV 250 ML IV ONE (15:22)
[2020-04-04 18:05] LABS: BILIRUBIN,URINE NEGATIVE (NEGATIVE); BLOOD/HEMOGLOBIN,URINE NEGATIVE (NEGATIVE); GLUCOSE, URINE NEGATIVE (NEGATIVE); KETONES,URINE NEGATIVE (NEGATIVE); LEUKOCYTE ESTERASE ,URINE NEGATIVE (NEGATIVE); NITRITES,URINE NEGATIVE (NEGATIVE); PH,URINE 6.5 (5.0 - 8.0); PROTEIN,URINE NEGATIVE (NEGATIVE); UROBILINOGEN,URINE NORMAL (NORMAL)
[2020-04-04 18:09] LABS: APPEARANCE,URINE CLEAR (CLEAR); COLOR,URINE YELLOW (YELLOW)
[2020-04-05] MEDS: NS 1000 ML 1,000 ML IV SCH ×3 (01:27→10:08)
[2020-04-05] MEDS: SOLU-Medrol 125 MG VIAL IVP SCH ×2 (03:13→11:00)
[2020-04-05] MEDS: ZOSYN VIAL 4.5 GRAMS 4.5 G in NS 100 ML IV + SPIKE MINIBAG* 100 ML IV SCH (05:46)
--- NOTE | 2020-04-05 06:22 | RAD ---
HISTORYSOBSTUDYCHEST, 1 [id number]/2021FINDINGSThe trachea is midline. The cardiac silhouette is unremarkable . The lungs are clear without focal infiltrate or effusion. The bony thorax is unremarkable.IMPRESSIONNo acute cardiopulmonary disease.Electronically signed by: Oscar Arce (Apr 05, 2020 06:19:22)
[2020-04-05 06:51] LABS: BASOPHILS % (AUTO) 0.1 % (0.2-1.0); HEMATOCRIT 35.7 % (36.0-47.0); HEMOGLOBIN 11.8 g/dL (12.0-16.0); LYMPHOCYTES # (AUTO) 1.2 X10^3/uL (1.3-2.9); LYMPHOCYTES % (AUTO) 8.3 % (21.0-51.0); MEAN CORPUSCULAR HEMOGLOBIN 28.8 pg (27.0-34.0); MEAN CORPUSCULAR VOLUME 87.3 fL (80.0-100.0); MEAN PLATELET VOLUME 10.3 fL (7.4-11.0); MONOCYTES # (AUTO) 0.5 x10^3/uL (0.3-0.8); MONOCYTES % (AUTO) 3.7 % (0.0-13.0); NEUTROPHILS # (AUTO) 12.8 x10^3/uL (2.2-4.8); NEUTROPHILS % (AUTO) 87.9 % (42.0-75.0); PLATELET COUNT 247 X10^3/uL (150.0-450.0); RED BLOOD COUNT 4.09 X10^6/uL (3.5-5.4); RED CELL DISTRIBUTION WIDTH 14.5 % (11.6-16.5); WHITE BLOOD COUNT 14.5 X10^3/uL (3.6-10.0)
[2020-04-05 07:28] LABS: ALANINE AMINOTRANSFERASE 35 Units/L (12-78); ALBUMIN 2.9 g/dL (3.4-5.0); ALKALINE PHOSPHATASE 65 Units/L (46-116); ASPARTATE AMINO TRANSFERASE 18 Units/L (15-37); BLOOD UREA NITROGEN 10 mg/dL (7-18); CALCIUM 8.7 mg/dL (8.5-10.1); CHLORIDE 107 mmol/L (98-107); COR CA(FOR HYPOALB) 9.6 mg/dL (8.5-10.1); COR NA(FOR HYPERGLY) 143 mmol/L (136-145); CREATININE 0.71 mg/dL (0.55-1.02); SODIUM 142 mmol/L (136-145); TOTAL PROTEIN 6.4 g/dL (6.4-8.2); eGFR NON BLACK RACES > 60 (>60)
[2020-04-05] MEDS: PEPCID 20 MG IV PREMIX* 20 MG/50 ML BAG IV SCH (08:26)
[2020-04-05] MEDS: MUCOMYST 20% 200 MG/ML NEB SCH (09:22)
[2020-04-05] MEDS: DUONEB 0.5 MG/3 MG (3 mL) NEB SCH (09:22)
[2020-04-05] MEDS: LEVAQUIN PREMIX IV 750 MG 750 MG/150 ML BAG IV SCH (10:00)
--- NOTE | 2020-04-05 10:55 | PCM.PROG ---
Progress Note - Progress Note for Day of Date of Exam: 04/04/20 - Subjective Subjective: WAS ADMITTED FOR BRONCHOPNEUMONIA, COPD EXACERBATION, HYPOXIA, AND F/EVER. TODAY, SHE IS ALERT AND ORIENTED, LYING IN BED ON MORNING ROUNDS. SHE CONTINUES WITH COMPLAINTS OF A PRODUCTIVE COUGH AND SHORTNESS OF BREATH. SHE DOES ADMIT TO SLIGHT IMPROVEMENT SINCE ADMISSION. SHE IS CURRENTLY UTILIZING OXYGEN VIA NASAL CANNULA AT 3 LITERS/MIN. HER OXYGEN SATURATIONS HAVE BEEN 94-98% THIS MORNING AND THROUGHOUT THE NIGHT. SHE HAS BEEN AFEBRILE SINCE ADMISSION. ON EXAMINATION, HEART IS REGULAR IN RATE AND RHYTHM. BILATERAL LUNGS ARE NOTED WITH SCATTERED RHONCHI THROUGHOUT. ABDOMEN IS ROUND, SOFT, AND NON- TENDER WITH NORMAL BOWEL SOUNDS NOTED IN ALL QUADRANTS. HER VITALS THIS MORNING ARE: 98.7-79-24-96%-106/78. LABS WERE OBTAINED. ABNORMAL LAB VALUES INCLUDE THE FOLLOWING: WBC 12.2, CHLORIDE 108, GLUCOSE 122, CRP 37.60, ALBUMIN 3.0. BLOOD, URINE, AND THROAT CULTURES ARE PENDING. CHEST XRAY IS NEGATIVE FOR ACUTE ABNORMALITY. SHE IS CURRENTLY RECEIVING NORMAL SALINE AT 125 ML/HR, LEVAQUIN 750MG IV DAILY, ZOSYN 4.5G IV TID, DUONEBS QID, MUCOMYST IN NEBS QID, SOLU- MEDROL 125MG IV Q6H, AND FIORICET 2 TABS PO Q8H PRN. WE WILL CONTINUE WITH CURRENT PLAN OF CARE TODAY. OTHERWISE, WE PLAN TO FOLLOW UP WITH AM LABS AND CONTINUE TO MONITOR. - Past Medical Family Social History Past Med/Fam/Surg Hx: No changes since H&P Allergies: Allergies hydromorphone [From Dilaudid] Allergy (Verified 03/21/18 11:04) - Review of Systems ROS: No change since H&P - Vital Signs and I&O's Vital Signs: Temperature 98.4 F Pulse Rate [Right Brachial] 66 Pulse Rate [Bilateral] 74 Pulse Rate 72 Respiratory Rate 22 Blood Pressure [Right Arm] 120/66 Blood Pressure 169/70 O2 Sat by Pulse Oximetry 96 Intake and Output: Intake & Output 04/02/20 04/03/20 04/04/20 04/05/20 11:59 11:59 11:59 11:59 Intake Total 1406 / 1406 3365 / 3365 3449 / 3449 Output Total 0 / 0 Balance 1406 / 1406 3365 / 3365 9275 / 3449 - Physical Exam Oriented: Normal Eyes: Normal Ear: Normal Nose: Normal Throat: Normal Respiratory: Generalized, Diminished Cardiovascular: Tachycardia : Normal Auscultation: Bowel Sounds: Normal Palpation: Normal Tenderness: Normal Skin: Normal Musculoskeletal: Normal Psychiatric: Normal Mood Description: Calm Affect: Normal Speech Pattern: Clear, Appropriate - Laboratory and Diagnostics Result Diagrams: 04/05/20 06:00 04/05/20 06:00 Labs: 04/04/20 17:50 Urine,Clean Catch Urine Culture - Preliminary 04/02/20 17:05 Blood Blood Culture - Preliminary 04/02/20 17:10 Blood Blood Culture - Preliminary Laboratory WBC 14.5 X10^3/uL (3.6-10.0) H 04/05/20 06:00 RBC 4.09 X10^6/uL (3.5-5.4) 04/05/20 06:00 Hgb 11.8 g/dL (12.0-16.0) L 04/05/20 06:00 Hct 35.7 % (36.0-47.0) L 04/05/20 06:00 MCV 87.3 fL (80.0-100.0) 04/05/20 06:00 MCH 28.8 pg (27.0-34.0) 04/05/20 06:00 MCHC 33.0 g/dL (33.0-35.0) 04/05/20 06:00 RDW 14.5 % (11.6-16.5) 04/05/20 06:00 Plt Count 247 X10^3/uL (150.0-450.0) 04/05/20 06:00 Plt Count Comment Adequate (ADEQUATE) 04/03/20 06:26 MPV 10.3 fL (7.4-11.0) 04/05/20 06:00 Neut % (Auto) 87.9 % (42.0-75.0) H 04/05/20 06:00 Lymph % (Auto) 8.3 % (21.0-51.0) L 04/05/20 06:00 [place] % (Auto) 3.7 % (0.0-13.0) 04/05/20 06:00 Eos % (Auto) 0.0 % (0.9-2.9) L 04/05/20 06:00 Baso % (Auto) 0.1 % (0.2-1.0) L 04/05/20 06:00 Neut # (Auto) 12.8 x10^3/uL (2.2-4.8) H 04/05/20 06:00 Lymph # (Auto) 1.2 X10^3/uL (1.3-2.9) L 04/05/20 06:00 [place] # (Auto) 0.5 x10^3/uL (0.3-0.8) 04/05/20 06:00 Eos # (Auto) 0.0 x10^3/uL (0.0-0.2) 04/05/20 06:00 Baso # (Auto) 0.0 X10^3/uL (0.0-0.1) 04/05/20 06:00 Absolute Nucleated RBC 0.1 /100WBC 04/05/20 06:00 Total Counted 100 04/03/20 06:26 Neutrophils % (Manual) 83 % (39-76) H 04/03/20 06:26 Band Neutrophils % 3 % (0-10) 04/03/20 06:26 Lymphocytes % (Manual) 12 % (13-43) L 04/03/20 06:26 Monocytes % (Manual) 2 % (4-9) L 04/03/20 06:26 Plt Morphology Comment Normal (NORMAL) 04/03/20 06:26 RBC Morphology Normal (NORMAL) 04/03/20 06:26 PT 13.7 SECONDS (11.8-14.3) 04/02/20 17:05 INR Target Range - 04/02/20 17:05 INR 1.08 (0.8-1.3) 04/02/20 17:05 D-Dimer < 0.27 ug/ml (0.0-0.57) 04/05/20 06:00 Sample Site Lr 04/03/20 05:45 ABG pH 7.380 (7.35-7.45) 04/03/20 05:45 ABG pCO2 42.0 mmHg (35.0-45.0) 04/03/20 05:45 ABG pO2 67.0 mmHg (80.0-100.0) L 04/03/20 05:45 ABG HCO3 24.8 mmol/L (22-26) 04/03/20 05:45 ABG O2 Saturation 93.0 % (90-100) 04/03/20 05:45 ABG Base Excess -0.4 mmol/L (-2.0-2.0) 04/03/20 05:45 Chandan Test Pos 04/03/20 05:45 A-a Gradient 109.0 mmHg 04/03/20 05:45 FiO2 32.0 04/03/20 05:45 Blood Gas Comments Pako well, kh 04/03/20 05:45 Sodium 142 mmol/L (136-145) 04/05/20 06:00 Corrected Sodium 143 mmol/L (136-145) 04/05/20 06:00 Potassium 4.6 mmol/L (3.5-5.1) 04/05/20 06:00 Chloride 107 mmol/L (98-107) 04/05/20 06:00 Carbon Dioxide 28.0 mmol/L (21-32) 04/05/20 06:00 BUN 10 mg/dL (7-18) 04/05/20 06:00 Creatinine 0.71 mg/dL (0.55-1.02) 04/05/20 06:00 Est GFR (MDRD) Af Amer > 60 (>60) 04/05/20 06:00 Est GFR (MDRD) Non-Af > 60 (>60) 04/05/20 06:00 Glucose 136 mg/dL (65-99) H 04/05/20 06:00 Calcium 8.7 mg/dL (8.5-10.1) 04/05/20 06:00 Corrected Calcium 9.6 mg/dL (8.5-10.1) 04/05/20 06:00 Magnesium 2.4 mg/dL (1.7-2.9) 04/05/20 06:00 Ferritin 185 ng/mL (8-252) 04/02/20 17:05 Total Bilirubin 0.20 mg/dL (0.2-1.0) 04/05/20 06:00 AST 18 Units/L (15-37) 04/05/20 06:00 ALT 35 Units/L (12-78) 04/05/20 06:00 Alkaline Phosphatase 65 Units/L (46-116) 04/05/20 06:00 Creatine Kinase 109 Units/L (26-192) 04/02/20 17:05 CK-MB (CK-2) 1.4 ng/mL (0-4.0) 04/02/20 17:05 CK/CKMB % Calc 1.3 % (<4) 04/02/20 17:05 Troponin I < 0.02 ng/mL (0-1.5) 04/02/20 17:05 C-Reactive Protein 15.00 mg/L (0-3.0) H 04/05/20 06:00 B-Natriuretic Peptide 32.6 pg/mL (0-79) 04/02/20 17:05 Total Protein 6.4 g/dL (6.4-8.2) 04/05/20 06:00 Albumin 2.9 g/dL (3.4-5.0) L 04/05/20 06:00 Globulin 3.5 g/dL (2.5-4.5) 04/05/20 06:00 Albumin/Globulin Ratio 0.8 Ratio (1.1-2.1) L 04/05/20 06:00 Specimen Type Clean catch urine 04/04/20 17:50 Urine Color Yellow (YELLOW) 04/04/20 17:50 Urine Appearance Clear (CLEAR) 04/04/20 17:50 Urine pH 6.5 (5.0 - 8.0) 04/04/20 17:50 Ur Specific [place] 1.010 (1.000-1.030) 04/04/20 17:50 Urine Protein Negative (NEGATIVE) 04/04/20 17:50 Urine Glucose (UA) Negative (NEGATIVE) 04/04/20 17:50 Urine Ketones Negative (NEGATIVE) 04/04/20 17:50 Urine Occult Blood Negative (NEGATIVE) 04/04/20 17:50 Urine Nitrite Negative (NEGATIVE) 04/04/20 17:50 Urine Bilirubin Negative (NEGATIVE) 04/04/20 17:50 Urine Urobilinogen Normal (NORMAL) 04/04/20 17:50 Ur Leukocyte Esterase Negative (NEGATIVE) 04/04/20 17:50 RSV Nasal Swab Negative (NEGATIVE) 04/02/20 20:13 Influenza Type A (PCR) Negative (NEGATIVE) 02/26/21 20:13 Influenza Type B (PCR) Negative (NEGATIVE) 04/02/20 20:13 SARS CoV-2 RNA Rapid KATIE Negative (NEGATIVE) 04/02/20 19:07 S. pyogenes (TEM-PCR) Not detected (NOT DETECT) 04/02/20 21:33 - Plan (1) Bronchopneumonia Status: Acute Plan: SUPPLEMENTAL OXYGEN, NORMAL SALINE AT 125 ML/HR, LEVAQUIN 750MG IV DAILY, ZOSYN 4.5G IV TID, DUONEBS QID, MUCOMYST IN NEBS QID, SOLU-MEDROL 125MG IV Q6H, AND FIORICET 2 TABS PO Q8H PRN. MONITOR LABS AND CHEST XRAY (2) Hypoxia Status: Acute (3) Acute dyspnea Status: Acute (4) Fever Status: Acute Qualifiers: Fever type: unspecified Qualified Code(s): R50.9 - Fever, unspecified
[2020-04-05 11:06] VITALS: BP 142/66
== END 2020-04-05 13:40 | disposition home or self-care (01) ==
LOC: OBS 16:53 → ER 16:53 → OBS 19:50 → MED/SURG 04-04 09:36
PROVIDERS: ADMIT Internal Medicine; ATTEND Internal Medicine
DX: J44.1 Chronic obstructive pulmonary disease with (acute) exacerbation; R06.02 Shortness of breath; R09.02 Hypoxemia; R79.89 Other specified abnormal findings of blood chemistry; Z20.822 Contact with and (suspected) exposure to COVID-19; R06.00 Dyspnea, unspecified; K21.9 Gastro-esophageal reflux disease without esophagitis; R79.82 Elevated C-reactive protein (CRP); R00.0 Tachycardia, unspecified; R50.9 Fever, unspecified; J18.0 Bronchopneumonia, unspecified organism